=== PATIENT | female | born 1970 | race African-American/Black ===

== ENCOUNTER → 2019-06-07 | Day surgery (SDC) | payer MEDICAID ==
[~2019-06-07] MED LIST: CELE200C PO; HYDR10FO3 RC; HYDROmorphone 2 MG/ML VIAL IV PRN; ILOP6TAB2 PO; IV RINGERS,LACTATED 1000ML 1,000 ML IV SCH; LIDOCAINE 1% PF 2 ML VIAL. ID PRN; MORPHINE SULFATE 2 MG/ML VIAL. IV PRN; ONDANSETRON PF 4 MG/2 ML VIAL. IV PRN; PROCHLORPERAZINE 10 MG/2 ML VIAL. IV PRN; PROPOFOL 40 ML IV ONE; VORT10TA PO; fentaNYL PF VIAL 100 MCG/2 ML VIAL IV PRN
--- NOTE | 2019-06-07 14:44 | PDOC4 ---
PROCEDURE Procedure EGD with biopsies/colonoscopy Indications: Epigastric tenderness/wt. loss/ Blood in stool Meds: per anesthesia Findings: E--Less than grade A esophagitis at 40cm. G--Patchy prepyloric erythema, biopsied. D--Normal to second portion JAGRUTI--normal --'Scope advanced to TI. Mucosa normal throughout. No diverticula, polyps, masses. Internal hemorrhoids on retroflex. Megan. well. IMP: Mild esophagitis Prepyloric erythema, biopsied. Hemorrhoids. REC: Await biopsies. Continue home medications and diet. F/u with me in 2 weeks. Consider screening colonoscopy in 10 years. EVA LOMAS MD Jun 07, 2019 14:44
[2019-06-07 15:01] VITALS: BP 101/74
--- NOTE | 2019-06-09 15:07 | PATHOLOGY ---
[facility] Accession Number: [id number] . 01 Material submitted: . stomach - ANTRUM BIOPSY . 01 Clinical history: . Epigastric pain, blood in stool . 02 Diagnosis: Gastric biopsies, antrum: - Chronic gastritis, mild. (M:[facility] 06/09/2019) [facility] 06/09/2019 0933 Local . 02 Comment: Sections of the gastric antral biopsy show focal congestion and very mild chronic inflammation. A properly controlled immunoperoxidase stain for Helicobacter is negative for Helicobacter organisms. There is no evidence of malignancy. (M:[facility] 06/09/2019) . Special stain performed: Immunoperoxidase for Helicobacter on A1. . 02 Electronically signed: . Bakari Shin MD, Pathologist NPI- [id number] . 01 Gross description: . The specimen is received in formalin, labeled "Oswaldo, Rachawn, antrum BX", are two irregular fragments of de jesus soft tissue measuring 0.8 and 0.3 cm in aggregate. Entirely submitted in A1. ([facility]; 06/08/2019) [facility] 06/08/2019 1555 Local . 02 Pathologist provided ICD-10: K29.50 . 02 CPT . 858021, [id number] Specimen Comment: A courtesy copy of this report has been sent to [phone], [phone] Specimen Comment: [id number] Specimen Comment: Report sent to / DR VYAS Specimen Comment: A duplicate report has been generated due to demographic updates. Performed at: 01 [facility] [address], [place], [place] [id number] MD Justen Nielsen MD Phone: [phone] Performed at: 02 [facility] [address], [place] [id number] MD Bakari Shin MD Phone: [phone]
== END ==
LOC: ENDOS 12:18
PROVIDERS: ATTEND Internal Medicine Gastroenterology
DX: K62.5 Hemorrhage of anus and rectum (principal); K29.50 Unspecified chronic gastritis without bleeding; K64.0 First degree hemorrhoids; F20.9 Schizophrenia, unspecified; Z88.3 Allergy status to other anti-infective agents; Z88.8 Allergy status to other drugs, medicaments and biological substances
CPT/HCPCS: 43239; 45378; 81025; 88305; 88342; J2704